=== PATIENT | female | born 1985 | race Caucasian/White ===

== ENCOUNTER → 2017-01-30 | Outpatient (CLI) | payer BC ==
[~2017-01-30] VITALS: Ht 175.3 cm; Wt 137.4 kg
[~2017-01-30] MED LIST: AMLO5TAB4 PO; DOCU100C37 PO; FERR325C PO; HYDR-3812 PO; IBUP-1773 PO; PREN-53 PO
[2017-01-30 14:40] VITALS: BP 152/88
== END ==
LOC: PREOP 14:26
PROVIDERS: ATTEND Obstetrics & Gynecology
DX: Z01.818 Encounter for other preprocedural examination (principal); Z11.2 Encounter for screening for other bacterial diseases; O34.211 Maternal care for low transverse scar from previous cesarean delivery
CPT/HCPCS: 87081

== ENCOUNTER 2017-02-06 05:50 | Inpatient (IN) | payer BC ==
[~2017-02-06] VITALS: Ht 175.3 cm; Wt 135.2 kg
[~2017-02-06 05:50] MED LIST changes: -AMLO5TAB4 PO; +CITRIC ACID/SOB CIT (BICITRA) 30 ML UDC ONE; -DOCU100C37 PO; +FAMOTIDINE 20MG/2ML IV (PEPCID) ONE; -HYDR-3812 PO; -IBUP-1773 PO; +LACTATED RINGERS 2,000 ML IV ONE; +METOCLOPRAMIDE INJ 10 MG/2 ML (REGLAN) ONE
[2017-02-06 06:00] VITALS: BP 147/76
[2017-02-06] MEDS ORDERED: CITRIC ACID/SOB CIT (BICITRA) 30 ML UDC PO ONE (06:00)
[2017-02-06] MEDS ORDERED: METOCLOPRAMIDE INJ 10 MG/2 ML (REGLAN) IV ONE (06:00)
[2017-02-06] MEDS ORDERED: FAMOTIDINE 20MG/2ML IV (PEPCID) IV ONE (06:00)
[2017-02-06] MEDS ORDERED: CATHETER FLUSH 10 ML SYR IV PRN (06:00)
[2017-02-06] MEDS: LACTATED RINGERS 1,000 ML IV PRN ×3 (06:10→07:52)
[2017-02-06] MEDS ORDERED: AMLO5TAB4 PO (06:19)
[2017-02-06 06:36] LABS: BASOPHILS # (AUTO) 0.1 10^3/uL (0.0-0.1); BASOPHILS % (AUTO) 0 % (0-10); EOSINOPHILS # (AUTO) 0.1 10^3/uL (0.0-0.3); EOSINOPHILS % (AUTO) 1 % (0-10); LYMPHOCYTES # (AUTO) 1.6 X 10^3 (1.0-4.0); LYMPHOCYTES % (AUTO) 13 % (12-44); MEAN CORPUSCULAR HEMOGLOBIN 27 PG (25-34); MEAN CORPUSCULAR HGB CONC 33 G/DL (32-36); MEAN CORPUSCULAR VOLUME 82 FL (80-99); MEAN PLATELET VOLUME 11.5 FL (7.4-10.4); MONOCYTES # (AUTO) 0.8 X 10^3 (0.0-1.0); MONOCYTES % (AUTO) 7 % (0-12); NEUTROPHILS # (AUTO) 9.6 X 10^3 (1.8-7.8); NEUTROPHILS % (AUTO) 79 % (42-75); PLATELET COUNT 182 10^3/uL (130-400); RED BLOOD COUNT 4.55 10^6/uL (4.35-5.85); RED CELL DISTRIBUTION WIDTH 20.5 % (10.0-14.5); WHITE BLOOD COUNT 12.2 10^3/uL (4.3-11.0)
[2017-02-06] MEDS ORDERED: KETOROLAC 30 MG/ML VIAL ONE ×2 (06:51→07:26)
[2017-02-06] MEDS ORDERED: fentaNYL INJECTION 100 MCG/2 ML AMP ONE (06:51)
[2017-02-06] MEDS ORDERED: morphine PF (DURAMORPH) 10 MG/10 ML AMP ONE (06:51)
[2017-02-06] MEDS ORDERED: OXYTOCIN/NORMAL SALINE 1,000 ML IV ONE (06:51)
[2017-02-06] MEDS ORDERED: LACTATED RINGERS 1,000 ML IV PRN (06:59)
--- NOTE | 2017-02-06 07:09 | History & Physical-OB ---
OB - Chief Complaint & HPI Date Date of Admission: Date of Admission: Feb 06, 2017 at 05:50 Chief Complaint/History OB-Reason for Admission/Chief: Section Hx : 2 Hx Para: 1 Expected Date of Delivery: February 12, 2017 Gestational Age in Weeks: 39 Indication for : desires repeat History of Labs B pos Antibody neg RI RPR NR HIV NR HBsAg NR GC GBS neg Allergies and Home Medications Allergies Coded Allergies: No Known Drug Allergies (Unverified , 01/30/17) Home Medications Amlodipine Besylate 5 Mg Tablet, 5 MG PO DAILY, (Reported) Ferrous Sulfate 325 Mg Capsule.er, 325 MG PO DAILY, (Reported) [id number]/Iron Fumarate/FA/Dss 1 Each Tablet, 1 EACH PO DAILY, (Reported) OB - History Hx of Present Care: Yes Ultrasounds: Normal mid trimester US Obstetrical Complications: Gestational Hypertension Medical Complications: None Delivery History Adverse Rxn to Tranfusion: No (N/A) Patient Past Medical History BMI 44 Social History/Family History Recent Infectious Disease Expo: No Sexually Transmitted Disease: No Alcohol Use: Denies Use Recreational Drug Use: No OB - Admission Exam Physical Exam HEENT: NCAT Heart: Rhythm Normal Lungs: Clear Abdomen: Gravid Extremities: Normal Reflexes: Normal Heart Rate: 130's Accelerations: Accelerations Present Decelerations: No Decelerations Short Term Variability: Present Solutions Analyst Variability: Average (6-25) Contractions on Admission: >10 Minutes Apart Intensity: Mild Labs Laboratory Tests Test 02/06/17 06:25 Range/Units White Blood Count 12.2 H 4.3-11.0 10^3/uL Red Blood Count 4.55 4.35-5.85 10^6/uL Hemoglobin 12.1 11.5-16.0 G/DL Hematocrit 37 35-52 % Mean Corpuscular Volume 82 80-99 FL Mean Corpuscular Hemoglobin 27 25-34 PG Mean Corpuscular Hemoglobin Concent 33 32-36 G/DL Red Cell Distribution Width 20.5 H 10.0-14.5 % Platelet Count 182 130-400 10^3/uL Mean Platelet Volume 11.5 H 7.4-10.4 FL Neutrophils (%) (Auto) 79 H 42-75 % Lymphocytes (%) (Auto) 13 12-44 % Monocytes (%) (Auto) 7 0-12 % Eosinophils (%) (Auto) 1 0-10 % Basophils (%) (Auto) 0 0-10 % Neutrophils # (Auto) 9.6 H 1.8-7.8 X 10^3 Lymphocytes # (Auto) 1.6 1.0-4.0 X 10^3 Monocytes # (Auto) 0.8 0.0-1.0 X 10^3 Eosinophils # (Auto) 0.1 0.0-0.3 10^3/uL Basophils # (Auto) 0.1 0.0-0.1 10^3/uL OB - Assessment/Plan/Diagnosis Assessment Assessment: section Plan Plan: Section Discharge Diagnosis Diagnosis: 31 yo @ 39 weeks Previous GHTN BMI 44 GBS neg JAYESH WOMACK DO Feb 06, 2017 07:09
[2017-02-06] MEDS ORDERED: fentaNYL INJECTION 100 MCG/2 ML AMP INJ ONE (07:15)
[2017-02-06] MEDS ORDERED: NALOXONE 0.4 MG/ML 1 ML (NARCAN) VIAL IV PRN (07:15)
[2017-02-06] MEDS ORDERED: ONDANSETRON 4 MG/2 ML (SDV) Z0FRAN IV PRN (07:15)
[2017-02-06] MEDS ORDERED: morphine PF (DURAMORPH) 10 MG/10 ML AMP INJ ONE (07:15)
[2017-02-06] MEDS ORDERED: HYDROmorphone (DILAUDID) 2 MG/ML VIAL ONE (07:26)
[2017-02-06] MEDS ORDERED: OXYTOCIN/NORMAL SALINE 500 ML IV ONE (07:27)
[2017-02-06] MEDS: LACTATED RINGERS 1,000 ML IV ONE ×2 (07:45→11:10)
[2017-02-06] MEDS ORDERED: ceFAZolin 2 GM/50 ML NS 50 ML IV ONE ×2 (07:45→08:45)
[2017-02-06] MEDS ORDERED: MEASLES,MUMPS,RUBELLA 1 EA INJ SC SCH (08:45)
[2017-02-06] MEDS ORDERED: HYDROmorphone (DILAUDID) 2 MG/ML VIAL IVP PRN (08:45)
[2017-02-06] MEDS ORDERED: TETANUS,DIPTH,PERTUSS P/F (BOOSTRIX) 0.5 ML VIAL IM SCH (08:45)
[2017-02-06] MEDS: KETOROLAC 30 MG/ML VIAL IVP SCH ×3 (09:04→21:06)
[2017-02-06] MEDS: DOCUSATE SODIUM 100 MG (COLACE) CAP PO SCH ×2 (09:23→21:06)
[2017-02-06 10:35] VITALS: BP 138/82
[2017-02-06] MEDS: amLODIPine 5 MG (NORVASC) TAB PO SCH (10:35)
[2017-02-06 14:45] VITALS: BP 129/79
[2017-02-06] MEDS: HYDROcodone/APAP 5 MG/325 MG (LORTAB) TAB PO PRN (17:20)
--- NOTE | 2017-02-06 18:29 | OPERATIVE REPORT ---
DATE OF SERVICE: 02/06/2017 PREOPERATIVE DIAGNOSES: 1. A 31-year-old G2, P1 at 39 weeks gestation. 2. Previous section. 3. Gestational hypertension. POSTOPERATIVE DIAGNOSES: 1. A 31-year-old G2, P1 at 39 weeks gestation. 2. Previous section. 3. Gestational hypertension. PROCEDURE PERFORMED: Repeat low transverse section. SURGEON: Dr. Hieu Corbett RESPIRATORY TECHNICIAN: Diane Carrion MS 4 ANESTHESIA: Spinal with Duramorph. ESTIMATED BLOOD LOSS: 700 mL. URINE: 200 mL prior to the procedure. FLUIDS: 1600 mL Lactated Ringers solution. FINDINGS: A live female infant weighing 8 pounds even, Apgars 9 and 9. Grossly normal appearing uterus, bilateral fallopian tubes and ovaries. SPECIMEN SENT: None. INDICATION FOR PROCEDURE: This 31-year-old female had sought care in my office throughout her care. It was only complicated by gestational hypertension which was managed with oral antihypertensives. She progressed to 39 weeks without any issue and had had a history of previous section. Discussed with the patient repeat section versus and she elected to proceed with repeat section. Risks of the procedure was discussed with the patient in detail including risks of bleeding, infection, damage to any surrounding structures including abdomen, bowel, bladder, ureter, kidneys, risks of postoperative hematoma formation and risks from anesthesia, risk for need for blood transfusion, hysterectomy and even . After everything was discussed with the patient her consent was obtained and patient was taken to the operating room. OPERATIVE REPORT IN DETAIL: Once in the operating room spinal anesthesia was found to be adequate, placed in the supine position with leftward tilt, prepped and draped in the normal sterile fashion. A Pfannenstiel skin incision was made through the previously existing scar using a knife and carried down to the underlying fascia using Bovie cautery. The fascial incision was extended laterally using Bovie cautery. The superior aspect of facial incision was then grasped with Chelly clamps, tented upward and dissected off the underlying rectus muscles. Inferior aspect of the fascial incisions were then grasped with Chelly clamps, tented upward and dissected off the underlying rectus muscles. The rectus muscles were then dissected down the midline using Metzenbaum scissors which exposes the peritoneum which is entered bluntly and extended using blunt traction. I then placed the Marcos reamer retractor at the peritoneal incision which offers excellent lateral and side wall retraction. Once this was done, we were able to identify the lower uterine segment which was found to be thinned out. I made an incision through the vesicouterine peritoneum and bluntly dissected bladder flap off of the lower uterine segment. I then proceeded with my myotomy until membranes were visualized, at which point I extended the uterine incision laterally and superiorly using the Band-Aid scissors. The amniotomy was performed using Allis clamp, clear fluid was noted. The was found to be in vertex presentation. My hand was placed beneath the 's head. With gentle fundal pressure, the infant's head was brought up through the incision where the nares and oropharynx were bulb suctioned. There was a nuchal cord reduced x1. Anterior and posterior shoulders were delivered. The infant was then brought to the operative field where cord was clamped and cut and handed off to waiting pediatric nurses in attendance. Cord blood was collected, three vessel cord with intact placenta delivered thereafter. IV Pitocin is initiated to facilitate uterine contraction. Uterine fundus became firmer with bimanual massage. The uterus was then exteriorized and cleared of all endometrial clots and debris. I then proceeded with closing the uterine incision using 0 Vicryl suture in running locked fashion, 2nd layer of 0 Monocryl was placed. Excellent hemostasis was noted after doing so. I then placed the uterus back within the pelvis and copiously irrigated the pelvis using normal saline. Once again no active bleeding was noted from any of my dissections points. I then placed Intercede antiadhesive on my low transverse incision and proceeded with closing the peritoneum using 2-0 Vicryl suture in a running fashion, the rectus muscles were reapproximated using 3-0 Vicryl in interrupted fashion, the fascia was reapproximated with 0 Vicryl suture in running fashion, the subcutaneous tissues were reapproximated using 3-0 plain in an interrupted subcutaneous stitch and the skin was reapproximated using 4-0 Monocryl in a subcuticular. Dermabond was applied to the incision with sterile dressings and adhesive white tape. The patient tolerated the procedure well and was taken to the recovery area in stable condition. Lap and sponge counts correct at the end of the procedure. Instrument count was correct as well. 2 gm of Ancef were given preoperatively for infection prophylaxis. Job ID: [id number] DocumentID: [id number] Dictated Date: 02/06/2017 08:24:17 Security Support Analyst Date: 02/06/2017 18:28:46 Dictated By: DO JEANNINE BARRIENTOS
[2017-02-06 21:06] VITALS: BP 128/76
[2017-02-06] MEDS: CATHETER FLUSH 10 ML SYR IV SCH (21:06)
[2017-02-07 00:40] VITALS: BP 133/80
[2017-02-07 04:00] VITALS: BP 132/85
[2017-02-07] MEDS: KETOROLAC 30 MG/ML VIAL IVP SCH (04:01)
[2017-02-07] MEDS: CATHETER FLUSH 10 ML SYR IV SCH (04:02)
[2017-02-07 06:42] LABS: BASOPHILS % (AUTO) 0 % (0-10); EOSINOPHILS # (AUTO) 0.1 10^3/uL (0.0-0.3); EOSINOPHILS % (AUTO) 1 % (0-10); LYMPHOCYTES # (AUTO) 1.4 X 10^3 (1.0-4.0); LYMPHOCYTES % (AUTO) 12 % (12-44); MEAN CORPUSCULAR HEMOGLOBIN 27 PG (25-34); MEAN CORPUSCULAR HGB CONC 33 G/DL (32-36); MEAN CORPUSCULAR VOLUME 82 FL (80-99); MEAN PLATELET VOLUME 11.1 FL (7.4-10.4); MONOCYTES # (AUTO) 0.7 X 10^3 (0.0-1.0); MONOCYTES % (AUTO) 6 % (0-12); NEUTROPHILS # (AUTO) 9.6 X 10^3 (1.8-7.8); NEUTROPHILS % (AUTO) 81 % (42-75); PLATELET COUNT 151 10^3/uL (130-400); RED BLOOD COUNT 4.18 10^6/uL (4.35-5.85); RED CELL DISTRIBUTION WIDTH 20.2 % (10.0-14.5); WHITE BLOOD COUNT 11.8 10^3/uL (4.3-11.0)
[2017-02-07 07:45] VITALS: BP 135/77
[2017-02-07] MEDS: HYDROcodone/APAP 5 MG/325 MG (LORTAB) TAB PO PRN ×3 (07:59→21:56)
[2017-02-07] MEDS: DOCUSATE SODIUM 100 MG (COLACE) CAP PO SCH ×2 (07:59→20:19)
--- NOTE | 2017-02-07 08:30 | Anesthesia-Regional Post-Op ---
Regional Patient Condition Mental Status: Alert, Oriented x3 Circulation: Same as Pre-Op Headache: Absent Sensation: Full Recovery Motor Block: Absent Post Op Complications Complications None Follow Up Care/Instructions Patient Instructions None needed. Anesthesia/Patient Condition Patient is doing well, no complaints, stable vital signs and ambulating well. No apparent adverse anesthesia problems noted. AURORA RALPH DO Feb 07, 2017 08:30
[2017-02-07] MEDS ORDERED: HYDR-3812 PO (09:25)
[2017-02-07] MEDS ORDERED: DOCU100C37 PO (09:25)
[2017-02-07] MEDS ORDERED: IBUP-1773 PO (09:25)
--- NOTE | 2017-02-07 09:25 | Discharge Inst-Women's Service ---
Discharge Inst-Women's Serv Depart Medication/Instructions New, Converted or Re-Newed RX: RX on Chart Consults/Follow Up Additional Follow Up: Yes Orders/Referrals Dr. Corbett in 7-10 days and in 6 weeks Activity Activity: Activity as Tolerated Driving Instructions: No Driving for 1 Week NO SMOKING: NO SMOKING Nothing Inside Vagina: No Douching, No [place], No Tampons Diet Discharge Diet: No Restrictions Symptoms to Report to : Bleeding Excessive, Pain Increased, Fever Over 101 Degrees F, Vaginal Bleeding Increase, Questions/Concerns For Any Problems or Questions: Contact Your Physician Skin/Wound Care Infection Signs and Symptoms: Increased Redness, Foul Odor of Wound, Increased Drainage, Skin Itchy or Has a Rash, Increased Swelling, Temperature Above 101 F Operative Area Clean and Dry: Keep Incision Clean/Dry Stitches/Derrick/Dermabond: Dermabond, Care of Stitches Bathing Instructions: JAYESH Christian DO Feb 07, 2017 09:25
[2017-02-07] MEDS: IBUPROFEN 600 MG (MOTRIN) TAB PO SCH ×3 (09:56→21:44)
[2017-02-07] MEDS: amLODIPine 5 MG (NORVASC) TAB PO SCH (09:56)
--- NOTE | 2017-02-07 10:10 | Progress Note-Standard ---
Standard Progress Note Progress Notes/Assess & Plan Progress/Assessment & Plan Patient doing well this AM. Patient pain well controlled, lochia light, tolerating regular diet. Ambulating and voiding freely. Vital Sign - Last 24 Hours 02/06/17 02/06/17 02/06/17 02/07/17 10:35 14:45 21:06 00:40 Temp 97.6 97.9 98.2 97.8 Pulse 75 82 78 83 Resp 18 18 18 18 B/P (MAP) 138/82 129/79 128/76 133/80 Pulse Ox 97 98 O2 Delivery Room Air Room Air Room Air Room Air 02/07/17 02/07/17 04:00 07:45 Temp 97.0 97.0 Pulse 74 88 Resp 18 18 B/P (MAP) 132/85 135/77 Pulse Ox 98 97 O2 Delivery Room Air Room Air Intake and Output 02/06/17 02/06/17 02/07/17 15:00 23:00 07:00 Intake Total 1250 ml 1000 ml Output Total 200 ml 1900 ml Balance 1050 ml -900 ml Laboratory Tests Test 02/07/17 06:32 Range/Units White Blood Count 11.8 H 4.3-11.0 10^3/uL Red Blood Count 4.18 L 4.35-5.85 10^6/uL Hemoglobin 11.3 L 11.5-16.0 G/DL Hematocrit 34 L 35-52 % Mean Corpuscular Volume 82 80-99 FL Mean Corpuscular Hemoglobin 27 25-34 PG Mean Corpuscular Hemoglobin Concent 33 32-36 G/DL Red Cell Distribution Width 20.2 H 10.0-14.5 % Platelet Count 151 130-400 10^3/uL Mean Platelet Volume 11.1 H 7.4-10.4 FL Neutrophils (%) (Auto) 81 H 42-75 % Lymphocytes (%) (Auto) 12 12-44 % Monocytes (%) (Auto) 6 0-12 % Eosinophils (%) (Auto) 1 0-10 % Basophils (%) (Auto) 0 0-10 % Neutrophils # (Auto) 9.6 H 1.8-7.8 X 10^3 Lymphocytes # (Auto) 1.4 1.0-4.0 X 10^3 Monocytes # (Auto) 0.7 0.0-1.0 X 10^3 Eosinophils # (Auto) 0.1 0.0-0.3 10^3/uL Basophils # (Auto) 0.0 0.0-0.1 10^3/uL Incision: c/d/i Diagnosis: POD 1 RLTCS GHTN BMI 44 P: Continue routine PO care Anticipate dc tomorrow if continues to progress. JAYESH WOMACK DO Feb 07, 2017 10:09 am
[2017-02-07 13:00] VITALS: BP 130/74
[2017-02-07 17:10] VITALS: BP 132/74
[2017-02-07 20:15] VITALS: BP 129/73
[2017-02-08 00:30] VITALS: BP 128/75
[2017-02-08] MEDS: IBUPROFEN 600 MG (MOTRIN) TAB PO SCH ×2 (04:01→09:28)
[2017-02-08 04:11] VITALS: BP 129/73
[2017-02-08] MEDS: HYDROcodone/APAP 5 MG/325 MG (LORTAB) TAB PO PRN (04:43)
[2017-02-08 08:00] VITALS: BP 140/81
[2017-02-08 08:10] VITALS: BP 123/80
[2017-02-08] MEDS: amLODIPine 5 MG (NORVASC) TAB PO SCH (09:28)
[2017-02-08] MEDS: DOCUSATE SODIUM 100 MG (COLACE) CAP PO SCH (09:28)
--- NOTE | 2017-02-08 09:35 | Progress Note-Standard ---
Standard Progress Note Progress Notes/Assess & Plan Progress/Assessment & Plan Patient doing well this AM. Patient pain well controlled, lochia light, tolerating regular diet. Ambulating and voiding freely. Vital Sign - Last 24 Hours 02/07/17 02/07/17 02/07/17 02/08/17 13:00 17:10 20:15 00:30 Temp 98.1 98.2 98.5 96.9 Pulse 94 83 80 85 Resp 18 18 20 18 B/P (MAP) 130/74 132/74 129/73 128/75 Pulse Ox 99 98 O2 Delivery Room Air Room Air Room Air Room Air 02/08/17 02/08/17 02/08/17 04:11 08:00 08:10 Temp 97.5 98.3 Pulse 76 75 Resp 20 18 B/P (MAP) 129/73 140/81 123/80 Pulse Ox 98 98 O2 Delivery Room Air Room Air Intake and Output 02/07/17 02/07/17 02/08/17 15:00 23:00 07:00 Intake Total 2740 ml 1800 ml Output Total 4400 ml 500 ml Balance -1660 ml 1300 ml Incision: c/d/i Diagnosis: POD 2 RLTCS GHTN BMI 44 P: Continue routine PO care DC home today JAYESH WOMACK DO Feb 08, 2017 09:35
[2017-02-08 12:10] VITALS: BP 123/80
== END 2017-02-08 12:10 | disposition home or self-care (01) | DRG 765 ==
LOC: LDRP 05:50
PROVIDERS: ADMIT Obstetrics & Gynecology; ATTEND Obstetrics & Gynecology
PROC: 3E0P05Z Introduction of Adhesion Barrier into Female Reproductive, Open Approach (ICD-10-PCS; 2017-02-06)
PROC: 10D00Z1 Extraction of Products of Conception, Low, Open Approach (ICD-10-PCS; principal; 2017-02-06 07:26)
DX: O34.211 Maternal care for low transverse scar from previous cesarean delivery (principal); O13.3 Gestational [pregnancy-induced] hypertension without significant proteinuria, third trimester; O69.81X0 Labor and delivery complicated by cord around neck, without compression, not applicable or unspecified; O99.213 Obesity complicating pregnancy, third trimester; E66.9 Obesity, unspecified; Z68.41 Body mass index [BMI] 40.0-44.9, adult; Z3A.39 39 weeks gestation of pregnancy; Z37.0 Single live birth; Z23 Encounter for immunization
CPT/HCPCS: 36415; 85025; 86850; 86900; 86901; 90715